=== PATIENT | male | born 1980 | race Caucasian/White ===

== ENCOUNTER 2021-08-09 11:11 | Day surgery (SDC) | payer BC ==
[2021-08-04 17:31] VITALS: BMI 29.5
[2021-08-09] MEDS ORDERED: PROPOFOL 20 ML ONE (12:07)
[2021-08-09 14:17] VITALS: TEMP 98.2
[2021-08-09 14:20] VITALS: PULSE 81
[2021-08-09 14:28] VITALS: BP 122/80
== END 2021-08-09 13:30 | disposition home or self-care (01) ==
LOC: FASU-ENDO 11:11
PROVIDERS: ATTEND Internal Medicine Gastroenterology
PROC: 0DB98ZX Excision of Duodenum, Via Natural or Artificial Opening Endoscopic, Diagnostic (ICD-10-PCS; 2021-08-09)
PROC: 0DB68ZX Excision of Stomach, Via Natural or Artificial Opening Endoscopic, Diagnostic (ICD-10-PCS; 2021-08-09)
PROC: 0DJD8ZZ Inspection of Lower Intestinal Tract, Via Natural or Artificial Opening Endoscopic (ICD-10-PCS; principal; 2021-08-09 12:20)
DX: K57.30 Diverticulosis of large intestine without perforation or abscess without bleeding (principal); K29.50 Unspecified chronic gastritis without bleeding; R12 Heartburn
CPT/HCPCS: 88305-TC; 88342-TC

== ENCOUNTER 2022-05-06 19:00 | Emergency (ER) | payer BC, OTHER ==
[2022-05-06 19:49] VITALS: BP 143/83; PULSE 80; TEMP 98.5; BMI 29.9
== END 2022-05-06 20:11 | disposition home or self-care (01) ==
LOC: SUPCPDRO 19:00 → FER 19:00
DX: S50.811A Abrasion of right forearm, initial encounter (principal); S50.312A Abrasion of left elbow, initial encounter; Y04.8XXA Assault by other bodily force, initial encounter
CPT/HCPCS: 99282-25

== ENCOUNTER 2022-11-07 15:05 | Inpatient (IN) | payer BC, OTHER ==
[2022-11-07] MEDS ORDERED: ACETAMINOPHEN 1000 MG/100 ML BAG IVPB ONE (15:39)
[2022-11-07] MEDS ORDERED: SODIUM CHLORIDE 0.9% 1000 ML INFUS.BAG IV ONE ×3 (15:39→16:44)
[2022-11-07] MEDS ORDERED: ACETAMINOPHEN INJECTION 100 ML IVPB ONE (15:59)
[2022-11-07 16:03] LABS: HEMATOCRIT 52.5 % (35.4-49); HEMOGLOBIN 17.9 G/dL (11.7-16.9); MCH 31.7 pg (25.7-33.7); MCHC 34.1 g/dl (32.0-35.9); MEAN CELL VOLUME 92.7 fl (80-96); MEAN PLT VOLUME 7.9 fl (7.5-11.1); RBC 5.66 10^6/uL (4.00-5.60); RDW 13.4 % (11.9-15.9); WHITE BLOOD COUNT 12.2 10^3/uL (4.0-10.8)
[2022-11-07 16:32] LABS: INR 0.99 (0.83-1.09); PROTHROMBIN TIME (PATIENT) 11.4 SEC (9.7-13.0)
[2022-11-07 16:34] LABS: ACTIVATED PTT 29.8 SECONDS (25.2-36.5)
[2022-11-07 16:38] LABS: ALBUMIN 4.1 g/dl (3.4-5.0); BILIRUBIN,TOTAL 0.9 mg/dl (0.2-1); CALCIUM 9.2 mg/dl (8.5-10); CREATININE 1.4 mg/dl (0.55-1.3); TOT PROT 7.6 g/dl (6.4-8.2)
[2022-11-07] MEDS ORDERED: ALPRAZolam 1 MG TABLET PO PRN (16:43)
[2022-11-07 17:17] LABS: PLATELET ESTIMATE ADEQUATE
[2022-11-07 17:35] LABS: HEMATOCRIT 43.6 % (35.4-49); MCHC 34.4 g/dl (32.0-35.9); MEAN CELL VOLUME 92.9 fl (80-96); MEAN PLT VOLUME 7.9 fl (7.5-11.1); PLATELET COUNT 246.5 10^3/uL (134-434); RBC 4.69 10^6/uL (4.00-5.60); RDW 13.4 % (11.9-15.9); WHITE BLOOD COUNT 15.6 10^3/uL (4.0-10.8)
[2022-11-07 20:21] LABS: HEMATOCRIT 42.2 % (35.4-49); HEMOGLOBIN 14.6 G/dL (11.7-16.9); MCH 32.3 pg (25.7-33.7); MCHC 34.7 g/dl (32.0-35.9); MEAN CELL VOLUME 93.1 fl (80-96); MEAN PLT VOLUME 8.1 fl (7.5-11.1); PLATELET COUNT 222.1 10^3/uL (134-434); RBC 4.53 10^6/uL (4.00-5.60); RDW 13.3 % (11.9-15.9); WHITE BLOOD COUNT 12.8 10^3/uL (4.0-10.8)
[2022-11-07] MEDS: D5-1/2NS+20 MEQ KCL - 20 MEQ/1,000 ML INFUS.BAG IV SCH (21:28)
[2022-11-08 00:31] VITALS: BMI 29.8
[2022-11-08] MEDS: D5-1/2NS+20 MEQ KCL - 20 MEQ/1,000 ML INFUS.BAG IV SCH (06:44)
[2022-11-08 07:37] LABS: HEMATOCRIT 35.2 % (35.4-49); MCH 31.9 pg (25.7-33.7); MCHC 34.2 g/dl (32.0-35.9); MEAN CELL VOLUME 93.3 fl (80-96); MEAN PLT VOLUME 8.1 fl (7.5-11.1); PLATELET COUNT 223 10^3/uL (134-434); RBC 3.77 M/mm3 (4.00-5.60); RDW 13.1 % (11.9-15.9); WHITE BLOOD COUNT 7.9 K/mm3 (4.0-10.0)
[2022-11-08 07:42] LABS: ALBUMIN 2.6 g/dl (3.4-5.0)
[2022-11-08 07:43] LABS: CALCIUM 7.3 mg/dL (8.5-10.1)
[2022-11-08 07:46] LABS: CREATININE 1.1 mg/dL (0.55-1.3)
[2022-11-08 07:47] LABS: BILIRUBIN,TOTAL 0.6 mg/dL (0.2-1); TOT PROT 5.2 g/dl (6.4-8.2)
[2022-11-08 09:34] LABS: MAGNESIUM 1.6 mg/dL (1.8-2.4)
[2022-11-08 09:38] LABS: PHOSPHOROUS 2.2 mg/dL (2.5-4.9)
[2022-11-08] MEDS ORDERED: PANTOPRAZOLE SODIUM 40 MG VIAL IVPUSH SCH (12:30)
[2022-11-08] MEDS ORDERED: ACETAMINOPHEN 325 MG TABLET (FP) PO PRN (13:26)
[2022-11-08] MEDS ORDERED: SODIUM CHLORIDE 1,000 ML IV SCH (13:30)
[2022-11-08] MEDS ORDERED: MAGNESIUM SULF 50% (8.12 MEQ/2 ML-1 GM VIAL) IVPB ONE (13:45)
[2022-11-08] MEDS ORDERED: SODIUM PHOSPHATE - 30 MM in SODIUM CHLORIDE 500 ML IVPB ONE (15:00)
[2022-11-08] MEDS ORDERED: TETRAHYDROZOLINE HCL EYE DROPS OU PRN (16:23)
[2022-11-08] MEDS ORDERED: ARTIFICIAL TEARS (POLYVINYL ALCOHOL) OPTH DROPS OU PRN (19:33)
[2022-11-09 08:46] LABS: BASO % 0.4 % (0-2.0); EOS % 0.5 % (0-4.5); HEMATOCRIT 36.8 % (35.4-49); HEMOGLOBIN 12.3 GM/dL (11.7-16.9); LYMPH % 25.5 % (8-40); MCH 31.5 pg (25.7-33.7); MCHC 33.5 g/dl (32.0-35.9); MEAN CELL VOLUME 94.1 fl (80-96); MEAN PLT VOLUME 8.3 fl (7.5-11.1); MONO % 10.3 % (3.8-10.2); NEUT % 63.3 % (42.8-82.8); PLATELET COUNT 249 10^3/uL (134-434); RBC 3.91 M/mm3 (4.00-5.60); RDW 13.1 % (11.9-15.9); WHITE BLOOD COUNT 6.4 K/mm3 (4.0-10.0)
[2022-11-09 08:57] LABS: CALCIUM 7.6 mg/dL (8.5-10.1)
[2022-11-09 09:01] LABS: TOT PROT 5.8 g/dl (6.4-8.2)
[2022-11-09 09:02] LABS: BILIRUBIN,TOTAL 0.4 mg/dL (0.2-1)
[2022-11-09] MEDS ORDERED: PANTOPRAZOLE 40 MG TABLET PO SCH (10:00)
[2022-11-09 10:37] VITALS: BP 120/76; PULSE 67; RESP 17; TEMP 98.2
[2022-11-09] MEDS ORDERED: TOBRAMYCIN 0.3% OPHTH SOLN 5 ML BOTTLE OU SCH (14:00)
== END 2022-11-09 14:15 | disposition home or self-care (01) | DRG 378 ==
LOC: FER 15:05 → JICU 11-08 00:03 → J4W 11-08 14:08
PROVIDERS: ADMIT Internal Medicine; ATTEND Nurse Practitioner Family
DX: K92.2 Gastrointestinal hemorrhage, unspecified (principal); N17.9 Acute kidney failure, unspecified; K21.9 Gastro-esophageal reflux disease without esophagitis; R55 Syncope and collapse; K57.90 Diverticulosis of intestine, part unspecified, without perforation or abscess without bleeding; H57.89 Other specified disorders of eye and adnexa
CPT/HCPCS: 0241U-QW; 36415; 74177-TC; 80048; 80053; 82272; 83735; 84100; 85025; 85027; 85610; 85730; 86850; 86900; 86901; 93005; 97116-GP; 97161-GP; 99285-25; Q9967